=== PATIENT | female | born 1960 | race Asian ===

== ENCOUNTER 2023-04-15 12:35 | Emergency (ER) | payer BC ==
[~2023-04-15] VITALS: Ht 154.9 cm; Wt 46.7 kg
== END 2023-04-15 14:42 | disposition home or self-care (01) ==
LOC: ER 12:35
DX: S90.851A Superficial foreign body, right foot, initial encounter (principal); X58.XXXA Exposure to other specified factors, initial encounter; Y93.89 Activity, other specified; Y92.89 Other specified places as the place of occurrence of the external cause; Y99.8 Other external cause status; R53.81 Other malaise; Z88.1 Allergy status to other antibiotic agents